=== PATIENT | female | born 1970 | race Caucasian/White ===

== ENCOUNTER → 2017-05-24 | Outpatient (CLI) | payer OTHER | LOC: FIMAGING 07:53 | PROVIDERS: ATTEND Family Medicine | DX: Z12.31 Encounter for screening mammogram for malignant neoplasm of breast (principal) ==

== ENCOUNTER → 2017-12-18 | Day surgery (SDC) | payer OTHER ==
[~2017-12-18] MED LIST: ACETAMINOPHEN 500 MG TAB PO PRN; ALBUTEROL 3 ML DEYVIAL IH PRN; BUPIVACAINE 0.25% 30 ML SDV ONE; DEXAMETHASONE 4 MG/ML VIAL IVP PRN; DEXAMETHASONE 4 MG/ML VIAL ONE; GLYCOPYRROLATE 0.2 MG/1 ML VIAL ONE; HYDROmorphONE/DILAUDID 1 MG/ML INJ IVP PRN; LIDOCAINE 1% 2 ML INJ ID PRN; LR 1,000 ML IV ONE; NALOXONE HCL 0.4 MG/ML INJ IVP PRN; NEOSTIGMINE METHYLSULFATE 5 MG/5 ML SYR ONE; ONDANSETRON 4 MG/2 ML VIAL IVP PRN; ONDANSETRON 4 MG/2 ML VIAL ONE; PROPOFOL 200 MG/20 ML VIAL ONE; ROCURONIUM 50 MG/5 ML VIAL ONE; fentaNYL 100 MCG/2 ML INJ IVP PRN; fentaNYL 100 MCG/2 ML INJ ONE; fentaNYL 250 MCG/5 ML INJ ONE; oxyCODONE IR 5 MG TAB ONE; oxyCODONE IR 5 MG TAB PO PRN
--- NOTE | 2017-12-18 07:32 | PDANEPAE ---
ANE History of Present Illness Laparoscopic Oopherectomy ANE Past Medical History - Cardiovascular History Hx Hypertension: No Hx Arrhythmias: No Hx Chest Pain: No Hx Coronary Artery / Peripheral Vascular Disease: No Hx CHF / Valvular Disease: No Hx Palpitations: No - Pulmonary History Hx COPD: No Hx Asthma/Reactive Airway Disease: No Hx Recent Upper Respiratory Infection: No Hx Oxygen in Use at Home: No Hx Sleep Apnea: No Sleep Apnea Screening Result - Last Documented: Negative - Neurologic History Hx Cerebrovascular Accident: No Hx Seizures: No Hx Dementia: No - Endocrine History Hx Diabetes: No - Renal History Hx Renal Disorders: No - Liver History Hx Hepatic Disorders: No - Neurological & Psychiatric Hx Hx Neurological and Psychiatric Disorders: No - Cancer History Hx Cancer: No - Congenital Disorder History Hx Congenital Disorders: No - GI History Hx Gastrointestinal Disorders: No - Other Health History Other Health History: NEG - Chronic Pain History Chronic Pain: No - Surgical History Prior Surgeries: D& C. POLYPECTOMY. C SECTION. HYSTERECTOMY ANE Review of Systems Review of Systems: - Exercise capacity Exercise capacity: >=4 METS METS (RN): 5 METS ANE Patient History - Allergies Allergies/Adverse Reactions: PECANS, WALNUTS Allergy (Mild, Uncoded 08/06/09 14:45) SORE MOUTH - Home Medications Home Medications: Flaxseed Oil 12/05/17 [Last Taken 12/15/17] - NPO status NPO Since - Liquids (Date): 12/17/17 NPO Since - Liquids (Time): 20:00 NPO Since - Solids (Date): 12/17/17 NPO Since - Solids (Time): 20:00 - Smoking Hx Smoking Status: Never smoked - Family Anes Hx Family Hx Anesthesia Complications: NEG ANE Labs/Vital Signs - Vital Signs Blood Pressure: 117/76 Heart Rate: 90 Respiratory Rate: 15 O2 Sat (%): 97 Height: 157.48 cm Weight: 58.967 kg ANE Physical Exam - Airway Neck exam: FROM Mallampati Score: Class 2 Mouth exam: normal dental/mouth exam - Pulmonary Pulmonary: clear to auscultation - Cardiovascular Cardiovascular: regular rate and rhythym - ASA Status ASA Status: I ANE Anesthesia Plan Anesthesia Plan: general endotracheal anesthesia
--- NOTE | 2017-12-18 08:08 | PDHPUP ---
History & Physical Update H&P update statement: This history and physical update is based on an assessment of the patient which was completed after admission or registration (within 24 hours), but prior to the surgery/procedure. H&P update: H&P reviewed & patient examined, no change in patient's condition since H&P completed
--- NOTE | 2017-12-18 09:45 | POSTANESTH ---
Post Anesthetic Evaluation Cardiovascular Status: Normal, Stable Respiratory Status: Normal, Stable Level of Consciousness/Mental Status: Can Participate in Eval, Mildly Sleepy, Arousable Pain Control: Adequate, Prn Tx Ordered Nausea/Vomiting Control: Adequate, Prn Tx Ordered Complications Possibly Related to Anesthesia: None Noted
--- NOTE | 2017-12-18 11:07 | POSTOPPROG ---
Post Op Note Date of Operation: 12/18/17 Surgeon: Cecily Lyons Anesthesiologist: Jonathan Sahu Anesthesia: GET(General Endotracheal) Pre-op Diagnosis: symptomatic adnexal mass Post-op Diagnosis: left ovarian mass, adhesive disease Indication: syptomatic pelvic mass Procedure: L/s removal of left ovarian mass, KORINA, LSO Findings: extensive adhesions, left mass Inf/Abcess present in the surg proc area at time of surgery?: No EBL: Minimal Complications: none Specimen(s): left ovary mass and tube
[2017-12-18 11:33] VITALS: BP 118/83
--- NOTE | 2017-12-18 12:06 | GOP ---
DATE OF OPERATION: SURGEON: Cecily Lyons MD ANESTHESIA: Jonathan Sahu DO. General endotracheal. PREOPERATIVE DIAGNOSIS: Symptomatic pelvic mass. POSTOPERATIVE DIAGNOSIS: Symptomatic pelvic mass. Extensive adhesions. PROCEDURE PERFORMED: FINDINGS: The right ovary was normal with right normal fallopian tube. Left ovary had a moderate-si zed cyst/mass. It appeared to have hemorrhagic material in it. The ovary was adhesed down to the le ft pelvic sidewall as well as to the sigmoid colon and so there were extensive adhesions with this le ft ovary. ESTIMATED BLOOD LOSS: Minimal. INDICATIONS: The patient is a 47-year-old, G2, P1, who is status post total abdominal hysterectomy i n 2009 for dysfunctional uterine bleeding and known history of uterine fibroids. She has done well s enoch. Did have an ultrasound in 2013 for left-sided pelvic pain and noted to have a 5 cm simple ovar tania cyst. Since that time we have not seen the patient as she has done her care with Dr. Sagar beyer. She then presented recently after a trip to [place] where she had acute onset of left lower q uadrant pain and was seen at the Urgent Care there. An ultrasound done showed a 5.8 cm simple ovaria n cyst. The patient was sent home with some pain medication and told to follow up here. The patient presented in October for evaluation and repeat ultrasound. An ultrasound done showed a 5 cm kind of complex mass with some hemorrhagic material. No free fluid. The patient was still moderately sympto matic with intermittent pain, desires to have the mass removed for pain relief as well as for diagnos tic purposes, and wants to proceed with laparoscopic removal of left ovary, fallopian tube, and pelvi c mass. DESCRIPTION OF PROCEDURE: With informed consent signed the patient was taken to the operating room a nd placed under general anesthesia without complication. Placed in the low dorsal lithotomy position , prepped and draped in the usual sterile fashion. A sponge stick placed in the vagina for traction. The abdomen and pelvis were prepped and draped, a Vital catheter placed. The incision sites were p reinjected with 0.25% Marcaine and an incision made in the inferior aspect of the umbilicus. A Veres s needle placed with ease into the abdominal cavity and carbon dioxide gas used to insufflate the abd omen. Once an adequate pneumoperitoneum was developed a 5 mm trocar placed into this incision site a nd a laparoscope followed indicating appropriate placement and no entrance injury. Next, a suprapubi c incision was made and a trocar placed in this incision site. At this point it was felt that we cou ld proceed laparoscopically even there were significant adhesions. Then a 10 mm incision made in the left lower quadrant and a 10 mm trocar placed here. So time was spent with sharp dissection of these adhesions and some blunt dissection. Cautery was no t used until once this mass was freed up from the colon and the sidewall. Then the gyrus was used to clamp across the infundibulopelvic ligament and this was done twice to ensure hemostasis. The rest of the attaching adhesions from the left sidewall were carefully dissected until the mass was free. The ureter was well far away from the dissection point. The cyst/mass was placed into an Endo bag an d then this was removed out of the left lower quadrant incision site. Then reinspection of the area where the mass was removed was hemostatic and felt that closure was appropriate. Then the trocars we re removed, abdomen desufflated, and the incisions were closed. The left lower quadrant was closed w ith a 2-0 Vicryl with the fascia. Then the skin was closed with 3-0 Vicryl. Then the skin was close d at the other 2 sites with 3-0 Vicryl. Then Steri-Strips and Band-Aids placed. The sponge stick wa s removed from the vagina. Patient was placed in supine position, awakened on the operating room tab le and taken from the operating room to the recovery room in stable condition. Tolerated the procedu re well. PROCEDURE: Laparoscopic removal of pelvic mass with left salpingo-oophorectomy and lysis of adhesion s. COMPLICATIONS: None. /[id number]/MODL
== END | disposition home or self-care (01) ==
LOC: FSGY 06:38
PROVIDERS: ATTEND Obstetrics & Gynecology Gynecology
PROC: 0UT14ZZ Resection of Left Ovary, Percutaneous Endoscopic Approach (ICD-10-PCS; principal; 2017-12-18 08:00)
DX: R19.09 Other intra-abdominal and pelvic swelling, mass and lump (principal); N73.6 Female pelvic peritoneal adhesions (postinfective); Z90.710 Acquired absence of both cervix and uterus
CPT/HCPCS: J1100; J2405; J2704; J2710; J3010